=== PATIENT | male | born 1955 | race Caucasian/White ===

== ENCOUNTER 2018-12-10 10:50 | Emergency (ER) | payer OTHER, SELFPAY ==
[2018-12-10 10:52] VITALS: BP 131/66; PULSE 62; RESP 17; TEMP 36.5; O2SAT 98; BMI 38.3
--- NOTE | 2018-12-10 11:06 | CT_ITS ---
STUDY: CT BRAIN WITHOUT CONTRAST REASON FOR EXAM: Male, 63 years old. Dizziness. Nausea/vomiting. RADIATION DOSAGE (If Supplied By Facility): CTDIvol = ( 44.99 ) mGy, DLP = ( 829.85 ) mGycm TECHNIQUE: Transaxial CT imaging of the brain was performed without administration of intravenous contrast material. Individualized dose optimization techniques were used for this CT. COMPARISON: No relevant priors. FINDINGS: Normal soft tissue structures. Normal calvarium. Normal size ventricles and extra-axial spaces for the patient's age. Normal white matter tracts of the cerebral hemispheres. Normal basal ganglia and thalami. Normal brainstem. Normal cerebellum. There is no intracranial hemorrhage. There are no findings of an acute ischemic infarction. Mild degree of thickening of the ethmoid sinuses. CT/Brain/Head without Contrast IMPRESSION: Normal unenhanced CT scan of the brain. Electronically Signed: Jimmy Guevara, at 11:48 EDT , Service support ,
--- NOTE | 2018-12-10 11:06 | EKG12_ITS ---
Test Reason : DIZZINESS Blood Pressure : / mmHG Vent. Rate : 064 BPM Atrial Rate : 064 BPM P-R Int : 182 ms QRS Dur : 092 ms QT Int : 424 ms P-R-T Axes : 010 -14 006 degrees QTc Int : 437 ms Normal sinus rhythm Minimal voltage criteria for LVH, may be normal variant Borderline ECG Confirmed by ALY CARMEN, FANTA ([id number]), photo editor DANIEL RAMIRES ([id number]) on 12/13/2018 11:40:11 AM Referred By: CLARICE Confirmed By:FANTA LU MD
--- NOTE | 2018-12-10 11:10 | ED.VISSUMM ---
- ER Visit Summary Date of Service: 12/10/18 Chief Complaint: Dizziness History of Present Illness: The patient is a 63 M 3 of insulin-dependent diabetes, hypertension high cholesterol. Patient states that he went to work this morning had not eaten much at all and just started feeling lightheaded and dizzy. Not room spinning. No significant headache. No chest pain or shortness of breath. Said he sat down. He went to the office and ate his fruits he was can have for breakfast. Still was not feeling any better. He denies any palpitations., Chest pain or shortness of breath. No abdominal pain. Recently has felt well. No prior history of this. When his symptoms began today he took his blood sugar and it was 155. Physical Examination: Well-appearing male vital signs are stable afebrile. Blood pressure 131/66. HEENT exam normal. No droop. Normal speech. Neck nontender. Lungs clear to auscultation bilaterally. Heart regular rhythm no murmur. Abdomen soft and nontender. Extremities moves all 4. Calves nontender no edema no cords. Neurologically is awake alert no focal motor deficits. NIH is 0. Fingertip to nose and [id number] within normal limits. Test Results: EKG shows a sinus rhythm rate 64 with no acute abnormalities. CBC shows a white count of 6. Hemoglobin 12.3. No old labs available for comparison. Electrolytes unremarkable anion gap of 10. Glucose 148. BUN 24 creatinine 1. Orthostatic vital signs are negative. Emergency Department Course and Treatment: Older diabetic male with lightheadedness. Normal neurologic exam. Screening labs will be obtained along with a CT of his brain. His exam at this time is normal. EKG is a sinus rhythm rate of 64 with no acute abnormality. No signs of TX or ischemia. No dysrhythmia. Repeat exam at 11:58 AM patient is doing well. He was treated with IV fluids and IV Zofran and again rechecked in 1430 and he feels much better. His exam remains normal. His neurologic exam remains normal. Treatment Plan: Discharge to home. Follow-up with primary care physician. Disposition: Discharge Impression: Acute lightheadedness uncertain etiology. History of insulin-dependent diabetes This note was generated with [employer] software. It may contain incorrect words, spelling, and punctuation that were not noted in review of the chart prior to signing ED Disposition - Plan for ED Patient: Referrals: [facility],Out of [NON-STAFF] -
[2018-12-10 11:28] VITALS: BP 135/63; PULSE 60; RESP 28; O2SAT 95
[2018-12-10 11:30] LABS: Absolute Lymphocyte Count 0.88 X10^3/uL (0.83-4.51); Absolute Neutrophil Count 5.1 X10^3/uL (2.0-7.7); Basophil# 0.06 X10^3/uL; Basophil% 0.9 % (0-1); Eosinophil# 0.26 X10^3/uL; Eosinophils% 3.8 % (0-5); Hematocrit 37.2 % (40-54); Hemoglobin 12.3 g/dL (13.0-16.5); Lymphocyte # 0.88 X10^3/ul (4.0); Lymphocyte % 12.8 % (19-41); Mean Corp Hgb Conc 33.1 g/dL (32-36); Mean Corpuscular Hgb 30.8 pg (27.0-32.0); Mean Corpuscular Volume 93.2 fL (80-94); Mean Platelet Vol. 9.8 fl (6.2-12.0); Monocyte# 0.54 X10^3/uL; Monocyte% 7.8 % (0-10); NRBC Flagged by Analyzer 0 % (0-5); Neutrophil # 5.12 X10^3/uL (2.7-7.7); Neutrophil % 74.4 % (47-70); Platelet Count 198 K/mm3 (150-450); RBC Distribution Width CV 13.2 % (11.6-14.6); RBC Distribution Width SD 45.3 fl (35.1-43.9); Red Blood Count 3.99 M/mm3 (4.6-6.2); White Blood Count 6.9 K/mm3 (4.4-11.0)
[2018-12-10 11:44] VITALS: BP 125/65; BP 126/67; BP 170/61
[2018-12-10 11:51] LABS: Anion Gap 10 (5-15); BUN 24 mg/dL (7-18); BUN/Creat Ratio 22.6 RATIO (10-20); Chloride 106 mmol/L (98-107); Creatinine, Serum 1.06 mg/dL (0.70-1.30); EST Glomerular Filtration Rate 75 mL/min (>60); Est Glom Filt Rate - Afr Amer 90 mL/min (>60); Estimated Creatinine Clearance 79.56 ml/min; Glucose 148 mg/dL (74-106); Potassium 4.5 mmol/L (3.5-5.1); Sodium Level 141 mmol/L (136-145)
[2018-12-10] MEDS: 0.9% Normal Saline 1,000 ML 999 ML IV (12:56)
[2018-12-10] MEDS: Ondansetron 4 MG/2 ML Vial IV (12:56)
--- NOTE | 2018-12-10 14:34 | ED.DEP ---
ED Disposition - Plan for ED Patient: Disposition: Home or Assisted Living Instructions: DIZZINESS, Unk Cause Referrals: [facility],Out of [NON-STAFF] - 3-5 Days Additional Instructions: All your tests today were basically unremarkable. The CAT scan of your head your EKG were both normal. You may have been slightly dehydrated. Plenty of fluids and rest. Follow-up with your doctor return to ER if you are feeling worse.
[2018-12-10 14:45] VITALS: BP 156/74; PULSE 75; RESP 22; O2SAT 95
== END 2018-12-10 14:46 | disposition home or self-care (01) ==
PROVIDERS: Emergency Provider Emergency Medicine
DX: R42 Dizziness and giddiness (principal); E11.9 Type 2 diabetes mellitus without complications; Z79.4 Long term (current) use of insulin; I10 Essential (primary) hypertension; E78.00 Pure hypercholesterolemia, unspecified
CPT/HCPCS: 70450; 80048; 85025; 93005; 99284; J7030; A4216; J2405